=== PATIENT | female | born 1960 | race Caucasian/White ===

== ENCOUNTER → 2016-11-22 | Outpatient (CLI) | payer OTHER | END | disposition home or self-care (01) | LOC: CFH 12:39 | PROVIDERS: ATTEND Nurse Practitioner Obstetrics & Gynecology | DX: Z12.31 Encounter for screening mammogram for malignant neoplasm of breast (principal); C82.90 Follicular lymphoma, unspecified, unspecified site; R59.1 Generalized enlarged lymph nodes | CPT/HCPCS: 77063; G0202 ==

== ENCOUNTER → 2016-12-18 | Outpatient (CLI) | payer OTHER ==
[~2016-12-18] MED LIST: OMNIPAQUE 350 MG/ML, 150 ML BOTTLE ONE
== END | disposition home or self-care (01) ==
LOC: CFH 13:47
PROVIDERS: ATTEND Specialist
DX: C82.01 Follicular lymphoma grade I, lymph nodes of head, face, and neck (principal); E04.2 Nontoxic multinodular goiter; R59.0 Localized enlarged lymph nodes
CPT/HCPCS: 70491; 71260; 74177; Q9967

== ENCOUNTER → 2017-01-24 | Outpatient (CLI) | payer OTHER ==
[~2017-01-24] MED LIST changes: +GADOBUTROL 7.5 MMOL/7.5 ML VIAL ONE; -OMNIPAQUE 350 MG/ML, 150 ML BOTTLE ONE
== END | disposition home or self-care (01) ==
LOC: CFH 13:42
PROVIDERS: ATTEND Neurological Surgery
DX: M50.30 Other cervical disc degeneration, unspecified cervical region (principal); M48.02 Spinal stenosis, cervical region; M43.12 Spondylolisthesis, cervical region; R59.9 Enlarged lymph nodes, unspecified; M12.88 Other specific arthropathies, not elsewhere classified, other specified site; R60.0 Localized edema; M25.78 Osteophyte, vertebrae
CPT/HCPCS: 72050; 72156; A9585

== ENCOUNTER → 2017-05-07 | Outpatient (CLI) | payer OTHER | END | disposition home or self-care (01) | LOC: ROC 13:57 | PROVIDERS: ATTEND Radiology Radiation Oncology | DX: C85.81 Other specified types of non-Hodgkin lymphoma, lymph nodes of head, face, and neck (principal) | CPT/HCPCS: 99212; G0463 ==

== ENCOUNTER → 2017-10-03 | Outpatient (CLI) | payer OTHER ==
[~2017-10-03] MED LIST changes: -GADOBUTROL 7.5 MMOL/7.5 ML VIAL ONE; +OMNIPAQUE 350 MG/ML, 150 ML BOTTLE ONE
== END | disposition home or self-care (01) ==
LOC: CFH 07:38
PROVIDERS: ATTEND Specialist
DX: C82.01 Follicular lymphoma grade I, lymph nodes of head, face, and neck (principal); E04.2 Nontoxic multinodular goiter
CPT/HCPCS: 70491; 71260; 74177; Q9967

== ENCOUNTER → 2018-03-04 | Outpatient (CLI) | payer OTHER | END | disposition home or self-care (01) | LOC: CFH 15:51 | PROVIDERS: ATTEND Family Medicine | DX: Z12.31 Encounter for screening mammogram for malignant neoplasm of breast (principal); Z85.79 Personal history of other malignant neoplasms of lymphoid, hematopoietic and related tissues | CPT/HCPCS: 77063; 77067 ==

== ENCOUNTER → 2019-10-08 | Outpatient (CLI) | payer OTHER ==
[~2019-10-08] MED LIST changes: +OMNIPAQUE 350 MG/ML, 100ML BOTTLE ONE; -OMNIPAQUE 350 MG/ML, 150 ML BOTTLE ONE
== END | disposition home or self-care (01) ==
LOC: CFH 09:03
PROVIDERS: ATTEND Internal Medicine Hematology & Oncology
DX: C82.01 Follicular lymphoma grade I, lymph nodes of head, face, and neck (principal); R59.0 Localized enlarged lymph nodes; E04.1 Nontoxic single thyroid nodule; R59.1 Generalized enlarged lymph nodes
CPT/HCPCS: 70491; 71260; 74177; Q9967

== ENCOUNTER → 2019-10-29 | Outpatient (CLI) | payer OTHER | END | disposition home or self-care (01) | LOC: RAD 08:07 | PROVIDERS: ATTEND Internal Medicine Hematology & Oncology | DX: C82.01 Follicular lymphoma grade I, lymph nodes of head, face, and neck (principal); E04.1 Nontoxic single thyroid nodule; R59.0 Localized enlarged lymph nodes | CPT/HCPCS: 76536; 78815; A9552 ==

== ENCOUNTER → 2019-11-12 | Outpatient (CLI) | payer OTHER ==
[~2019-11-12] MED LIST changes: +LIDOCAINE 1%, 10ML ONE; -OMNIPAQUE 350 MG/ML, 100ML BOTTLE ONE
== END | disposition home or self-care (01) ==
LOC: RAD 12:18
PROVIDERS: ATTEND Internal Medicine Hematology & Oncology
DX: C82.01 Follicular lymphoma grade I, lymph nodes of head, face, and neck (principal)
CPT/HCPCS: 76942; 88305; J3490; 88341; 88342